=== PATIENT | female | born 1965 | race African-American/Black ===

== ENCOUNTER 2024-01-15 10:11 | Outpatient (CLI) | payer MEDICAID, SELFPAY ==
--- OUTSIDE RECORDS SUMMARY | 2024-01-15 10:19 | XMS_ITS | Clinical Summary ---
Author Organization [employer] [facility] Address [place], [place] [address] Care Team Providers Care Technical Information Specialist Name Role Phone Allan, Alicia Qi Primary Care Provider [phone] Allergies No known active allergies Medications Medication Sig Dispensed Refills Start Date End Date Status diclofenac topical (VOLTAREN) 1 % gelIndications:Suzy vipul osteoarthritis of right knee Apply 4 g topically to affected area(s) four times daily. 350 g 2 02/05/20 23 Active famotidine (PEPCID) 20 mg tabletIndications: Gas pain Take 1 Tablet (20 mg) by mouth two times daily. 180 Tablet 2 03/17/19 24 Active hydrocortisone (HYTONE) 2.5 % ointmentIndication s:Contact dermatitis, unspecified contact dermatitis type, unspecified trigger Apply topically to affected area(s) two times daily. 20 g 03/17/19 24 Active [id number] acid 29 mg iron- 1 mg chewIndications:Ba riatric surgery status Chew 1 Tablet by mouth once daily. 90 Tablet 3 05/06/19 24 Active cholecalciferol (VITAMIN D3) 5,000 unit capsuleIndications :Vitamin D deficiency Take 1 Capsule (5,000 units) by mouth once daily. 90 Capsule 2 05/06/19 24 Active gabapentin (NEURONTIN) 100 mg capsuleIndications :Fibromyalgia Take 1 Capsule (100 mg) by mouth every morning. 90 Capsule 2 05/18/19 24 Active ibuprofen (ADVIL; MOTRIN) 600 mg tabletIndications: Fibromyalgia TAKE ONE TABLET BY MOUTH THREE TIMES A DAY NEEDED FOR PAIN MAXIMUM OF 3200 MG IN 24 HOURS 270 Tablet 2 07/24/19 24 Active blood-glucose meterIndications:D iabetes mellitus due to underlying condition, controlled, without complication, without long-term current use of insulin (HC) As directed. Dispense meter covered by pts insurance. 1 Each 09/24/19 24 Active metFORMIN (GLUCOPHAGE XR) 500 mg Extended-Release tabletIndications: Class 3 severe obesity in adult, unspecified BMI, unspecified obesity type, unspecified whether serious comorbidity present (HC),Diabetes mellitus due to underlying condition, controlled, without complication, without long-term current use of insulin (HC) Take 2 Tablets (1,000 mg) by mouth once daily with a meal. 180 Tablet 10/27/19 24 Active meloxicam (MOBIC) 7.5 mg tabletIndications: Mid back pain Take 1 Tablet (7.5 mg) by mouth once daily. 14 Tablet 10/26/19 24 Active lidocaine 5 % topical patchIndications:M id back pain Apply to intact skin to cover most painful area for max 12hr per 24hr period. 15 Patch 10/26/19 24 Active HYDROcodone-acetam inophen (5-325 mg/tablet)Indicati ons:Mid back pain Take 1 Tablet by mouth 4 times daily if needed for Pain. Max acetaminophen dose: 4000 mg in 24 hrs. 5 Tablet 10/26/19 24 Active acetaminophen (TYLENOL EXTRA STRGTH) 500 mg tabletIndications: Thoracolumbar back pain,Facet arthritis of lumbar region Take 1 Tablet (500 mg) by mouth every 6 hours. Max acetaminophen dose: 4000mg in 24 hrs. 100 Tablet 3 10/28/19 24 Active albuterol HFA (PRO-AIR; VENTOLIN; PROVENTIL) 90 mcg/actuation inhalerIndications :Cough, unspecified type INHALE ONE TO TWO PUFFS BY MOUTH EVERY 4 HOURS NEEDED FOR SHORTNESS OF BREATH OR WHEEZING 18 g 11/09/19 24 Active blood sugar diagnostic (Blood Glucose Test) stripIndications:D iabetes mellitus due to underlying condition, controlled, without complication, without long-term current use of insulin (HC) Test 1-2 times per day, if needed 100 Each 12 11/11/19 24 Active lancetsIndications :Diabetes mellitus due to underlying condition, controlled, without complication, without long-term current use of insulin (HC) As directed. Test 1-2 times per day, if needed 100 Each 12 11/11/19 24 Active buPROPion (WELLBUTRIN XL) 150 mg Extended-Release tabletIndications: Depression with anxiety Take 1 Tablet (150 mg) by mouth once daily in the morning. 30 Tablet 1 12/17/19 Active oxyCODONE (ROXICODONE) 5 mg immediate release tabletIndications: Lumbar radiculopathy Take 1 Tablet (5 mg) by mouth 3 times daily if needed for Pain. for pain 36 Tablet 12/28/19 Active amitriptyline (ELAVIL) 25 mg tablet Take 2 Tablets by mouth at bedtime. 024 Discontinued(*P atient states no longer taking) oxyCODONE (ROXICODONE) 5 mg immediate release tabletIndications: Lumbar radiculopathy Take 1 Tablet (5 mg) by mouth 3 times daily if needed for Pain. 12 Tablet 12/14/19 24 024 Discontinued oxyCODONE (ROXICODONE) 5 mg immediate release tabletIndications: Lumbar radiculopathy Take 1 Tablet (5 mg) by mouth 3 times daily if needed for Pain. for pain 12 Tablet 12/22/19 24 024 Discontinued(Re order (E-cancel not sent)) Active Problems Problem Noted Date Diagnosed Date Primary osteoarthritis of left knee 07/01/2022 Heart murmur 01/03/2022 Overview (01/15/2022): Echo 12/2021 with Mild mitral regurgitation, tri-leaflet aortic valve. Laurel Alvarez MD .................... 01/15/2022 10:12 AM Tricompartment osteoarthritis of right knee 12/24 Primary osteoarthritis of right knee 01/02/2021 Bariatric surgery status 08/22/2020 Mammogram declined 02/28/2018 Diabetes mellitus due to und erlying condition, controlled, without complication, without long-term current use of insulin 12/09/2016 Pain medication agreement 11/23/2014 Overview (12/02/2023): Controlled substsance agreement completed 11/03/[address] Lemus. MANAGED CARE COORDINATOR checked 12/02/23 Vitamin D deficiency 06/19/2014 ELIANA (obstructive sleep apnea) 03/25/2013 Overview (03/25/2013): Sleep study with Dr. Bryant 02/2013. Laurel Alvarez MD .................... 03/25/2013 10:39 AM Hyperlipidemia LDL goal < 100 09/17/2012 Language barrier, cultural differences 3 Overview (08/20/2012): Does not need an parts interpreter; is comfortable in [place] Fibromyalgia 05/26/2012 Depressive disorder 04/09/2010 Overview (06/08/2017): Overview: Depression* Resolved Problems Problem Noted Date Diagnosed Date Resolved Date Morbid obesity with BMI of 40.0-44.9, adult 01/09/2021 07/05/2021 Type 2 diabetes mellitus wit h hyperglycemia, without long-term current use of insulin 10/10/2020 01/09/2021 BMI 50.0-59.9, adult 03/10/2018 021 Insomnia 08/19/2012 07/05/2021 Diabetes mellitus type II 06/25/2012 Overview (05/10/2013): a system change updated this record. This will not affect patient care or billing. This comment can be deleted. Cardiomegaly 05/27/2012 01/09/2021 Overview (05/27/2012): mild need follow up consider EKG and echo Degenerative joint disease of knee 05/26/2012 01/09/2021 Encounters Date Type Department Care Team Description 12/28/2023 2:00 PM CREDIT REPRESENTATIVE Office Visit [facility] [address] [place] [address] Arsen Keith MD Musculoskeletal Problem (Follow up low back pain, discuss MRI and ZACK) 12/28/2023 Travel 12/21/2023 Refill [facility] [address] [place] [address] [address] Arsen Keith MD Refill Request (Oxycodone) 12/17/2023 3:15 PM CDT Office Visit [facility] [address] [place] [address] Alicia eLmus, Depression (would like to start medication); Back Pain (Has appointment scheduled with sports med on 12/27) 12/17/2023 Travel 12/14/2023 Refill [facility] [address] [place] [address] Arsen Keith MD Refill Request (oxyCODONE (ROXICODONE) 5 mg) 12/12/2023 Refill [facility] [address] [place] [address] Arsen Keith MD Refill Request (Oxycodone) 12/01/2023 Refill [facility] [address] [place] [address] Arsen Keith MD Refill Request 11/23/2023 Refill [facility] [address] [place] [address] Arsen Keith MD Refill Request (Oxycodone) 11/20/2023 Telephone [facility] [address] [place] [address] Arsen Keith MD Results (MRI) 11/17/2023 3:56 PM CDT - 11/17/2023 11:59 PM CDT Hospital Encounter [facility] [address] [place] [address] Arsen Keith MD Lumbar radiculopathy; Spondylolisthesis of lumbar region; Lumbar facet arthropathy 11/17/2023 Travel 11/10/2023 3:30 PM CDT Procedure Only [facility] [place] [address] [facility] [address] [place] [id number] Zane Walden MD Follow Up (bilateral knees) 11/10/2023 3:25 PM CDT Ancillary Procedure [facility] [place] [address] [facility] [address] [place] [address] 11/10/2023 Travel 11/10/2023 Telephone [facility] [address] Alicia Lemus, Refill Request (Accu-Chek Guide test strips, lancets) 11/09/[address] [address] Almita Wray MD Refill Request (Albuterol Hfa) 11/06/2023 10:40 AM CDT Office Visit [facility] [address] Arsen Keith MD Musculoskeletal Problem (Consult back pain per Dr. Lemus) 11/06/2023 Travel 10/30/[address] [address] Almita rWay MD Refill Request (Ventolin Hfa) 10/30/[address] [address] Alicia Lemus, Form 10/29/[address] [address] Alicia Lemus, DO Results 10/28/2023 4:30 PM CDT Ancillary Procedure [address] [address] 10/28/2023 4:05 PM CDT Office Visit [address] [address] Alicia Lemus, Back Pain (Ongoing back pain moves all over the place has not participated in physical therapy. ) 10/28/2023 Travel 10/27/[address] [address] Arsen Keith MD Appointment Request 10/26/2023 7:59 AM CDT - 10/26/2023 11:04 AM CDT Emergency [facility] [address] [place] [address] Rosalie Crane MD Mid back pain (Primary Dx) Discharge Disposition: Home Self Care 10/26/2023 Travel 10/23/2023 Refill [facility] [address] [facility] [place] [address] Alicia Lemus, DO Refill Request (Metformin) 10/22/2023 Nurse Triage [facility] [address] [facility] [place] [address] Alicia Lemus, DO Back Pain from Last 3 Months Immunizations Name Administration Dates Next Due COVID-19 vaccine ([employer] 30mcg/0.3mL) 12YO+ STEVEN-SUCROSE PF, MDV 06/07/2021 COVID-19 vaccine ([employer] 30mcg/0.3mL) PF, MDV 06/28/2020 Hepatitis B (Adult) 12/11/2022,08/01/2022,2020 Influenza, IIV3 (Age >=3 years) 12/01/2012,12/09 Influenza, IIV4 12/17/2020,,01/27/2019,2016,01/24/2016,11/23/2014 MMR 01/26/2001,08/01/1997 Pneumococcal Conj 20-valent (Prevnar 20) 08/01/2022 Pneumococcal Poly,23-Valent (Pneumovax) 12/17/2020 TD, UNSPECIFIED 08/23/2001,01/26/2001,08/01/1997 Td (Age >=7 Years) 08/23/2001,01/26/2001, 998 Tdap 04/30/2015 Typhoid (injectable) 09/09/2016 Family History Medical History Relation Name Comments Diabetes type II Father Asthma Mother Relation Name Status Comments Father Mother Alive Social History Tobacco Use Types Packs/Day Years Used Date Smoking Tobacco: Never Smokeless Tobacco: Never Tobacco Cessation:Counseling Given: Yes Alcohol Use Standard Drinks/Week Comments Never 0 (1 standard drink = 0.6 oz pur e alcohol) PHQ-2 Answer Date Recorded PHQ-2 TOTAL SCORE 2 12/17/2023 Social Connections Answer Date Recorded Do you often feel lonely or isolated from those around you? 0 10/28/2023 Financial Resource Strain Answer Date R ecorded Difficulty of Paying Living Expenses 3 10/28/2023 Difficulty of Paying Living Expenses Not on file 10/28/2023 Food Insecurity Answer Date Recorded Do you worry your food will run out before you are able to buy more? 1 10/28/2023 Transportation Needs Answer Date Record ed Does lack of transportation keep you from medica l appointments? 1 10/28/2023 Does lack of transportation keep you from work, meetings or getting things that you need? 1 10/28/2023 Housing Stability Answer Date Recorded What is your housing situation today? 1 10/28/2023 Sex and Gender Information Value Date Recorded Sex Assigned at Not on file Gender Identity Not on file Sexual Orientation Not on file Obstetrics History Para Term AB IAB SAB Ectopic Multiple Livin g Live Births 8 7 7 0 1 0 1 0 0 6 7 Date Outcome GA Total Labor Labor/2nd/3rd Weight Sex Type Anes PTL Peri A1 A5 Name Clin Term Demise SAB Demise Term Living Term Y Living Term Y Living Term Living Term Living Term Living Last Filed Vital Signs Vital Sign Reading Time Taken Comments Blood Pressure 138/62 12/28/2023 2:12 PM CREDIT REPRESENTATIVE Pulse 76 12/28/2023 2:12 PM CREDIT REPRESENTATIVE Temperature 36.7 C (98 F) 12/28/2023 2:12 PM CREDIT REPRESENTATIVE Respiratory Rate 18 10/26/2023 8:04 AM CDT Oxygen Saturation 97% 12/28/2023 2:1 2 PM CREDIT REPRESENTATIVE Inhaled Oxygen Concentration - - Weight 110.2 kg (243 lb) 12/28/2023 2:1 2 PM CREDIT REPRESENTATIVE shoes and coat on Height 160 cm (5' 3) 10/26/2023 8:04 AM CDT Body Mass Index 43.05 10/26/2023 8:04 AM CDT Plan of Treatment Upcoming Encounters Date Type Department Care Team (Late st Contact Info) Description 01/15/2024 11:00 AM CREDIT REPRESENTATIVE Office Visit [facility] at [address] [address] Arsen Keith MD [address] [facility] [place] [address] Arrived 01/22/2024 3:15 PM CREDIT REPRESENTATIVE Office Visit [facility] [address] [place] [address] Alicia Lemus DO [address] [place] [address] 04/06/2024 2:20 PM CREDIT REPRESENTATIVE Office Visit [facility] [address] [place] [address] Arsen Keith MD [address] [place] [address] Health Maintenance Due Date Last Done Comments Colonoscopy through age 75 2009 Mammogram for age 45-75 2009 Zoster (shingles) series for age 50+ (1 of 2) 2014 Pap test for age 21-65 11/06/2020 8 (Completed outside of [facility]), 03/10/2013 BMI (ht and wt on same day) for age 18+ 09/05/2023 09/04/2022, 08/01/2022, 07/03/2022, Additional history exists COVID-19 vaccine series ( season) 2023 06/07/2021, 07/19/2020, 06/28/2020 Influenza for age 50-64 10/25/2023 12/18/19 21, 12/21/2019, 01/27/2019, Additional history exists Depression screening for age 12+ 12/16/2024 12/17/2023, 01/15/2022, 09/26/2020, Additional history exists Tetanus booster 04/29/2025 04/30/2015, 07/0 02/2001, 08/23/2001, Additional history exists Lipids for age 45-75 04/01/2028 04/01/2023, 12/17/2020, 04/18/2020, Additional history exists Tdap Completed 04/30/2015 Hepatitis C screening for ag e 18-79 Completed 08/26/2019 HIV for age 15-65 Completed 04/04/2022 Pneumococcal series for age 6-64 Completed 08/02/19 23, 12/17/2020 Hepatitis B series for Diabetes Completed 12/11/2022, 08/01/2022, 12/17/2020 Procedures Procedure Name Priority Date/Time Associated Diagnosis Comments AMB EPIDURAL STEROID INJECTION Routine 01/15/2024 8:03 AM CREDIT REPRESENTATIVE Lumbar radiculopathy Spondylolisthesis of lumbar region Lumbar facet arthropathy MR SPINE LUMBAR WO Routine 11/17/2023 4: 32 PM CDT Lumbar radiculopathy Spondylolisthesis of lumbar region Lumbar facet arthropathy XR KNEE WB 1 VIEW AP BILATERAL AND 3 VIEWS BILATERAL Routine 11/10/2023 3:35 PM CDT Primary osteoarthritis of right knee Primary osteoarthritis of left knee XR SPINE THORACIC 3 VIEWS Routine 10/28/2023 5:24 PM CDT Thoracolumbar back pain CT ABDOMEN PELVIS STONE PROTOCOL WO STAT 10/26/2023 9:25 AM CDT CBC WITH AUTO DIFFERENTIAL STAT 10/26/2023 8:43 AM CDT LIPASE STAT 10/26/2023 8:43 AM CDT HEPATIC FUNCTION PANEL STAT 10/26/2023 8:43 AM CDT BASIC METABOLIC PANEL STAT 10/26/2023 8:43 AM CDT CBC WITH AUTO DIFFERENTIAL STAT 10/26/2023 8:43 AM CDT URINALYSIS MICROSCOPIC STAT 10/26/2023 8:29 AM CDT UA W/ SEDIMENT EXAM REFLEXED PER CRITERIA STAT 10/26/2023 8:29 AM CDT LIPID PANEL W REFLEX MEASURED LDL Routine 04/01/2023 4:54 PM CREDIT REPRESENTATIVE Class 3 severe obesity in adult, unspecified BMI, unspecified obesity type, unspecified whether serious comorbidity present (HC) Diabetes mellitus due to underlying condition, controlled, without complication, without long-term current use of insulin (HC) RAPID HIV SCREEN Routine 04/04/2022 11:1 7 AM CREDIT REPRESENTATIVE Screening for HIV (human immunodeficiency virus) HCV RNA QUANT Routine 08/26/2019 10:02 AM CDT Encounter for hepatitis C screening test for low risk patient FRUIT AND VEGETABLE PARER THIN PREP PAP SCREEN IMAGED Routine 03/10/2013 2:30 PM CREDIT REPRESENTATIVE Well woman exam from Last 3 Months or Most Recently Relevant to Health Maintenance Results * MR SPINE LUMBAR WO (11/17/2023 4:32 PM CDT) Anatomical Region Laterality Modality Spine, LUMBAR SPINE Magnetic Res onance 11/18/2023 11:2 1 AM CDT Impressions 11/18/2023 11:21 AM CDT 1. Grade 1 anterolisthesis of L4 on L5. Otherwise, normal alignment. No fractures 2. Lumbar spondylosis. 3. At L4-5, disc degeneration and posterior disc bulge. Mild narrowing of the spinal canal. 4. No spinal canal or neural foraminal narrowing at the remaining levels Dictated by Fidel Beebe MD @ 11/18/2023 11:21:32 AM (Electronically Signed) Narrative 11/18/2023 11:21 AM CDT For Patients: As a result of the Cures Act, medical imaging exams and procedure reports are released immediately into your electronic medical record. You may view this report before your referring provider. If you have questions, please contact your health care provider. INDICATION: Radiculopathy. COMPARISON: 11/03/2022. Technique Sagittal T1, T2, and STIR sequences. Axial T1 and T2 weighted sequences. FINDINGS: Grade 1 anterolisthesis of L4 on L5 measures approximately 5 millimeters. Otherwise, normal alignment. No fractures. No vertebral body loss of height. No ligamentous injury. No suspicious osseous lesions. Vertebral body hemangioma L2. Normal conus terminates at L1-2. T12-L1 L1-2 L2-3: No spinal canal or neural foraminal narrowing. L3-4: Mild disc degeneration and posterior disc bulge. No narrowing of spinal canal. No neural foraminal narrowing. L4-5: Grade 1 anterolisthesis. Disc degeneration and posterior disc bulge. Mild narrowing of spinal canal. No neural foraminal narrowing. Mild facet arthropathy. L5-S1: No narrowing of spinal canal. No impingement of the traversing S1 nerve roots. No neural foraminal narrowing. Mild facet arthropathy. Normal visualized SI joints. Procedure Note Fidel Beebe MD, PhD - 11/18/2023 For Patients: As a result of the Cures Act, medical imagingexams and procedure reports are released immediately into your electronicmedical record. You may view this report before your referring provider.If you have questions, please contact your health care provider. INDICATION: Radiculopathy. COMPARISON: 11/03/2022. Technique Sagittal T1, T2, and STIR sequences. Axial T1 and T2 weightedsequences. FINDINGS: Grade 1 anterolisthesis of L4 on L5 measures approximately 5 millimeters.Otherwise, normal alignment. No fractures. No vertebral body loss ofheight. No ligamentous injury. No suspicious osseous lesions. Vertebralbody hemangioma L2. Normal conus terminates at L1-2. T12-L1 L1-2 L2-3: No spinal canal or neural foraminal narrowing. L3-4: Mild disc degeneration and posterior disc bulge. No narrowing ofspinal canal. No neural foraminal narrowing. L4-5: Grade 1 anterolisthesis. Disc degeneration and posterior disc bulge.Mild narrowing of spinal canal. No neural foraminal narrowing. Mild facetarthropathy. L5-S1: No narrowing of spinal canal. No impingement of the traversing [id number] roots. No neural foraminal narrowing. Mild facet arthropathy. Normal visualized SI joints. IMPRESSION: 1. Grade 1 anterolisthesis of L4 on L5. Otherwise, normal alignment. Nofractures 2. Lumbar spondylosis. 3. At L4-5, disc degeneration and posterior disc bulge. Mild narrowing ofthe spinal canal. 4. No spinal canal or neural foraminal narrowing at the remaining levels Dictated by Fidel Beebe MD @ 11/18/2023 11:21:32 AM (Electronically Signed) Arsen Keith MD MR * XR KNEE WB 1 VIEW AP BILATERAL AND 3 VIEWS BILATERAL (11/10/2023 3:35 PM CDT) Anatomical Region Laterality Modality KNEES Computed Radiogr aphy 11/11/2023 7:02 AM CDT Impressions 11/11/2023 7:02 AM CDT Severe bilateral osteoarthritis, worse on the right. No significant change from the study of 07/01/2022. Dictated by Cullen Lopez MD @ 11/11/2023 7:02:54 AM (Electronically Signed) Narrative 11/11/2023 7:02 AM CDT For Patients: As a result of the Cures Act, medical imaging exams and procedure reports are released immediately into your electronic medical record. You may view this report before your referring provider. If you have questions, please contact your health care provider. INDICATION: Primary osteoarthritis of the right left knee. TECHNIQUE: Four views each the right left knee. COMPARISON: 10/20/2022. FINDINGS: Medial compartment narrowing in both knees more significant on the right is relatively similar to the prior study. Tricompartment osteoarthritis spurring. No fracture or dislocation. No lytic bone destruction. Benign cortical defect distal right femoral shaft similar to the prior. No apparent joint effusions. Procedure Note Kamron Lopez MD - 11/11/2023 For Patients: As a result of the Cures Act, medical imagingexams and procedure reports are released immediately into your electronicmedical record. You may view this report before your referring provider.If you have questions, please contact your health care provider. INDICATION: Primary osteoarthritis of the right left knee. TECHNIQUE: Four views each the right left knee. COMPARISON: 10/20/2022. FINDINGS: Medial compartment narrowing in both knees more significant on the rightis relatively similar to the prior study. Tricompartment osteoarthritisspurring. No fracture or dislocation. No lytic bone destruction. Benigncortical defect distal right femoral shaft similar to the prior. Noapparent joint effusions. IMPRESSION: Severe bilateral osteoarthritis, worse on the right. No significant changefrom the study of 07/01/2022. Dictated by Cullen Lopez MD @ 11/11/2023 7:02:54 AM (Electronically Signed) Zane Walden MD GENERAL IMAGING * XR SPINE THORACIC 3 VIEWS (10/28/2023 5:24 PM CDT) Anatomical Region Laterality Modality Spine, THORACIC SPINE Computed R adiography 10/29/2023 12:2 7 PM CDT Impressions 10/29/2023 12:27 PM CDT 1. No acute osseous injuries or abnormalities are noted. Dictated by Aakash Hameed MD @ 10/29/2023 12:27:55 PM Dictated by: Aakash Hameed MD @ 10/29/2023 12:27:58 (Electronically Signed) Narrative 10/29/2023 12:27 PM CDT For Patients: As a result of the Cures Act, medical imaging exams and procedure reports are released immediately into your electronic medical record. You may view this report before your referring provider. If you have questions, please contact your health care provider. INDICATION: Thoracolumbar back pain TECHNIQUE: Thoracic spine radiograph 3 views COMPARISON: None FINDINGS: Bone: No acute fractures or aggressive bone lesions are identified. Alignment is normal. Disc: Moderate degenerative disc disease is seen in the mid and inferior thoracic spine. The facet joints are unremarkable. Soft tissue: Unremarkable. The visualized hemithorax is unremarkable in appearance. No radiopaque foreign bodies are seen. Procedure Note Aakash Hameed MD - 10/29/2023 For Patients: As a result of the Cures Act, medical imagingexams and procedure reports are released immediately into your electronicmedical record. You may view this report before your referring provider.If you have questions, please contact your health care provider. INDICATION: Thoracolumbar back pain TECHNIQUE: Thoracic spine radiograph 3 views COMPARISON: None FINDINGS: Bone: No acute fractures or aggressive bone lesions are identified.Alignment is normal. Disc: Moderate degenerative disc disease is seen in the mid and inferiorthoracic spine. The facet joints are unremarkable. Soft tissue: Unremarkable. The visualized hemithorax is unremarkable inappearance. No radiopaque foreign bodies are seen. IMPRESSION: 1. No acute osseous injuries or abnormalities are noted. Dictated by Aakash Hameed MD @ 10/29/2023 12:27:55 PM Dictated by: Aakash Hameed MD @ 10/29/2023 12:27:58 (Electronically Signed) Alicia Lemus DO GENERAL IMAGING * CT ABD/PELVIS STONE PROTOCOL WO CONT (10/26/2023 9:25 AM CDT) Anatomical Region Laterality Modality Abdomen, Pelvis, AORTA, LIVER, SPLEEN Computed Tomography 10/26/2023 9:41 AM CDT Narrative 10/26/2023 9:41 AM CDT For Patients: As a result of the Cures Act, medical imaging exams and procedure reports are released immediately into your electronic medical record. You may view this report before your referring provider. If you have questions, please contact your health care provider. Indication: Flank pain, kidney stone suspected Technique: Noncontrast CT abdomen and pelvis Please note that all CT scans at this facility use dose modulation, iterative reconstruction, and/or weight-based dosing when appropriate to reduce radiation dose to as low as reasonably achievable. Comparison: None Findings: Patchy areas of small airway trapping within the lung bases. No pleural effusion. The liver measures 19.8 cm. Spleen is nonenlarged. Postop changes to the stomach including gastric jejunostomy. Gallbladder distended. No calcified gallstones or biliary obstruction. Pancreas is normal. Normal adrenal glands. Uterus is unremarkable. No adnexal lesion. No bladder stone. Normal appendix. No bowel obstruction. Postop changes to the anterior abdominal wall without hernia or fluid collection. Fecalization of several small bowel loops. No bowel obstruction. No free air, free fluid, abscess or adenopathy. No hydronephrosis or hydroureter. No ureteral stone. No perinephric or periureteral stranding. Grade 1 degenerative spondylolisthesis of L4 on L5. Facet degeneration L4-5 and L5-S1. No vertebral body compression fracture. Impression: No renal, ureteral or bladder stone. No hydronephrosis or hydroureter. No inflammatory changes. Hepatomegaly. Distended gallbladder without biliary obstruction or calcified stones. 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 No mechanical bowel obstruction. No enteritis or colitis. Normal appendix. Please note that all CT scans at this facility use dose modulation, iterative reconstruction, and/or weight-based dosing when appropriate to reduce radiation dose to as low as reasonably achievable. Dictated by Ashu Arceo MD @ 10/26/2023 9:41:31 AM (Electronically Signed) Procedure Note Ashu Arceo MD - 10/26/2023 For Patients: As a result of the Cures Act, medical imagingexams and procedure reports are released immediately into your electronicmedical record. You may view this report before your referring provider.If you have questions, please contact your health care provider. Indication: Flank pain, kidney stone suspected Technique: Noncontrast CT abdomen and pelvis Please note that all CT scans at this facility use dose modulation,iterative reconstruction, and/or weight-based dosing when appropriate toreduce radiation dose to as low as reasonably achievable. Comparison: None Findings: Patchy areas of small airway trapping within the lung bases. No pleuraleffusion. The liver measures 19.8 cm. Spleen is nonenlarged. Postopchanges to the stomach including gastric jejunostomy. Gallbladderdistended. No calcified gallstones or biliary obstruction. Pancreas isnormal. Normal adrenal glands. Uterus is unremarkable. No adnexal lesion.No bladder stone. Normal appendix. No bowel obstruction. Postop changes tothe anterior abdominal wall without hernia or fluid collection.Fecalization of several small bowel loops. No bowel obstruction. No freeair, free fluid, abscess or adenopathy. No hydronephrosis or hydroureter.No ureteral stone. No perinephric or periureteral stranding. Grade 1degenerative spondylolisthesis of L4 on L5. Facet degeneration L4-5 andL5-S1. No vertebral body compression fracture. Impression: No renal, ureteral or bladder stone. No hydronephrosis or hydroureter. Noinflammatory changes. Hepatomegaly. Distended gallbladder without biliary obstruction orcalcified stones. Fecalization of several small bowel loops suggesting small bowel motilitydisorder. No mechanical bowel obstruction. No enteritis or colitis. Normalappendix. Please note that all CT scans at this facility use dose modulation,iterative reconstruction, and/or weight-based dosing when appropriate toreduce radiation dose to as low as reasonably achievable. Dictated by Ashu Arceo MD @ 10/26/2023 9:41:31 AM (Electronically Signed) Rosalie Crane MD CT * (ABNORMAL) CBC WITH AUTO DIFFERENTIAL (10/26/2023 8:43 AM CDT) WHITE BLOOD COUNT 5.3 4.5 - 11.0 thou/cu mm 10/26/2023 8:50 AM [facility] RED BLOOD COUNT 4.16 4.00 - 5.20 mil/cu mm 10/26/2023 8:50 AM [facility] HEMOGLOBIN 11.2(L) 12.0 - 16.0 g/dL 10/26/2023 8:50 AM [facility] HEMATOCRIT 35.1 33.0 - 51.0 % 10/26/2023 8:50 AM [facility] MCV 84 80 - 100 fL 10/26/2023 8:50 AM [facility] MCH 26.9 26.0 - 34.0 pg 10/26/2023 8:50 AM [facility] MCHC 31.9(L) 32.0 - 36.0 g/dL 10/26/2023 8:50 AM [facility] RDW 14.9 11.5 - 15.5 % 10/26/2023 8:50 AM [facility] PLATELET COUNT 345 140 - 440 thou/cu mm 10/26/2023 8:50 AM [facility] MPV 9.4 6.5 - 11.0 fL 10/26/2023 8:50 AM [facility] % NEUT 69.2 % 10/26/2023 8:50 AM [facility] % LYMPH 18.9 % 10/26/2023 8:50 AM [facility] % MONO 8.7 % 10/26/2023 8:50 AM [facility] % EOS 2.6 % 10/26/2023 8:50 AM CDT [facility] % BASO 0.6 % 10/26/2023 8:50 AM T [facility] ABSOLUTE NEUTROPHILS 3.7 1.7 - 7.0 thou/cu mm 10/26/2023 8:50 AM T [facility] ABSOLUTE LYMPHOCYTES 1.0 0.9 - 2.9 thou/cu mm 10/26/2023 8:50 AM T [facility] ABSOLUTE MONOCYTES 0.5 <0.9 thou/cu mm 10/26/2023 8:50 AM T [facility] ABSOLUTE EOSINOPHILS 0.1 <0.5 thou/cu mm 10/26/2023 8:50 AM T [facility] ABSOLUTE BASOPHILS 0.0 <0.3 thou/cu mm 10/26/2023 8:50 AM T [facility] Blood BLOOD SPECIMEN / Unknown Butterfly / Unknown 10/26/2023 8:43 AM CDT 10/26/2023 8:46 AM CDT Rosalie Crane MD HEMATOLOGY Performing Organization Address City/[facility]/ZIP Co de Phone Number [facility] [address] [place] [address] * LIPASE (10/26/2023 8:43 AM CDT) LIPASE 26.6 13.0 - 60.0 IU/L 10/26/2023 9:06 AM CDT [facility] Blood BLOOD SPECIMEN / Unknown Butterfly / Unknown 10/26/2023 8:43 AM CDT 10/26/2023 8:46 AM CDT Rosalie Crane MD CHEMISTRY Performing Organization Address City/[facility]/ZIP Co de Phone Number [facility] [address] [place] [address] * HEPATIC FUNCTION PANEL (10/26/2023 8:43 AM CDT) ALBUMIN 4.0 4.0 - 4.9 g/dL 10/26/2023 9:06 AM [facility] PROTEIN,TOTAL 7.2 6.0 - 8.0 g/dL 10/26/2023 9:06 AM [facility] BILIRUBIN,TOTAL 0.3 0.0 - 1.2 mg/dL 10/26/2023 9:06 AM [facility] BILIRUBIN,DIRECT 0.1 0.0 - 0.2 mg/dL 10/26/2023 9:06 AM [facility] BILIRUBIN,INDIRE CT 10/26/2023 9:06 AM [facility] Comment:Unable to calculate, Direct Bili <0.2 ALK PHOSPHATASE 98 35 - 104 IU/L 10/26/2023 9:06 AM [facility] ALT (SGPT) 12 10 - 35 IU/L 10/26/2023 9:06 AM [facility] AST (SGOT) 21 10 - 35 IU/L 10/26/2023 9:06 AM [facility] Blood BLOOD SPECIMEN / Unknown Butterfly / Unknown 10/26/2023 8:43 AM CDT 10/26/2023 8:46 AM CDT Rosalie Crane MD CHEMISTRY Performing Organization Address [facility]/State/ZIP Co de Phone Number [facility] [address] [place] [address] * (ABNORMAL) BASIC METABOLIC PANEL (10/26/2023 8:43 AM CDT) SODIUM 140 136 - 145 mmol/L 10/26/2023 9:06 AM [facility] POTASSIUM 3.4(L) 3.5 - 5.1 mmol/L 10/26/2023 9:06 AM [facility] CHLORIDE 106 98 - 107 mmol/L 10/26/2023 9:06 AM [facility] CO2,TOTAL 23 22 - 29 mmol/L 10/26/2023 9:06 AM [facility] ANION GAP 11 5 - 18 10/26/2023 9:06 AM [facility] GLUCOSE 121(H) 70 - 99 mg/dL 10/26/2023 9:06 AM [facility] CALCIUM 9.0 8.6 - 10.0 mg/dL 10/26/2023 9:06 AM [facility] BUN 19 6 - 20 mg/dL 10/26/2023 9:06 AM [facility] CREATININE 0.55 0.50 - 0.90 mg/dL 10/26/2023 9:06 AM [facility] BUN/CREAT RATIO 35(H) 10 - 20 9:06 AM [facility] eGFR >90 >90 mL/min/1.7 3m2 10/26/2023 9:06 AM [facility] Comment:As of 2021, eG FR is calculated by the CKD-EPI creatinine equation without race adjustment. eGFR can be influenced by muscle mass, exercise, and diet. The reported eGFR is an estimation only and is only applicable if the renal function is stable. Blood BLOOD SPECIMEN / Unknown Butterfly / Unknown 10/26/2023 8:43 AM CDT 10/26/2023 8:46 AM CDT Rosalie Crane MD CHEMISTRY [facility] [address] [place] [id number] * (ABNORMAL) URINALYSIS MICROSCOPIC (10/26/2023 8:29 AM CDT) RBC 0-2 0-2, None Seen /HPF 10/26/2023 8:54 AM [facility] WBC 0-2 0-2, 3-5, None Seen /HPF 10/26/2023 8:54 AM [facility] BACTERIA Few None Seen, Rare, Few Bacteria/ HPF 10/26/2023 8:54 AM [facility] EPITHELIAL CELLS Moderate(A) None Seen, Few Epi/HPF 10/26/2023 8:54 AM [facility] Mucus Present 10/26/2023 8:54 AM [facility] Urine URINE SPECIMEN / Unknown Non-Blood / Unknown 10/26/2023 8:29 AM CDT 10/26/2023 8:46 AM CDT Rosalie Crane MD URINE [facility] [address] [place] [address] * (ABNORMAL) URINALYSIS W REFLEX MICROSCOPIC IF POSITIVE (10/26/2023 8:29 AM CDT) COLOR Yellow Yellow Color 10/26/2023 8:52 AM [facility] CLARITY Slightly Cloudy(A) Clear Clarity 10/26/2023 8:52 AM [facility] SPECIFIC GRAVITY,URINE >=1.030(A) 1.010, 1.015, 1.020, 1.025 10/26/2023 8:52 AM [facility] PH,URINE 6.0 6.0, 7.0, 8.0, 5.5, 6.5, 7.5, 8.5 10/26/2023 8:52 AM [facility] UROBILINOGEN, QUALITATIVE Normal Normal EU/dl 10/26/2023 8:52 AM [facility] PROTEIN, URINE 30(A) Negative mg/dL 10/26/2023 8:52 AM [facility] GLUCOSE, URINE Negative Negative mg/dL 10/26/2023 8:52 AM [facility] KETONES,URINE Negative Negative mg/dL 10/26/2023 8:52 AM [facility] BILIRUBIN,URI NE Negative Negative 10/26/2023 8:52 AM [facility] OCCULT BLOOD,URINE Negative Negative 10/26/2023 8:52 AM [facility] NITRITE Negative Negative 10/26/2023 8:52 AM [facility] LEUKOCYTE ESTERASE Trace(A) Negative 10/26/2023 8:52 AM CDT [facility] Urine URINE SPECIMEN / Unknown Non-Blood / Unknown 10/26/2023 8:29 AM CDT 10/26/2023 8:46 AM CDT Rosalie Crane MD URINE [facility] [address] [place] [address] * LIPID PANEL W REFLEX MEASURED LDL (04/01/2023 4:54 PM CREDIT REPRESENTATIVE) CHOLESTEROL,TOTAL 192 100 - 199 mg/dL 04/02/2023 3:59 PM CREDIT REPRESENTATIVE [facility] Comment: Cholesterol, Total Reference Ranges Desirable <200 mg/dL Borderline 200-239 mg/dL High >=240 mg/dL TRIGLYCERIDES 93 <150 mg/dL 04/02/2023 3:59 PM CREDIT REPRESENTATIVE [facility] HDL CHOLESTEROL 54 >40 mg/dL 3:59 PM CREDIT REPRESENTATIVE [facility] NON-HDL CHOLESTEROL 138 <145 mg/dl 04/02/2023 3:59 PM CREDIT REPRESENTATIVE [facility] CHOL/HDL RATIO 3.56 <4.50 04/02/2023 3:59 PM CREDIT REPRESENTATIVE [facility] LDL CHOLESTEROL 119 <=130 mg/dL 04/02/2023 3:59 PM CREDIT REPRESENTATIVE [facility] VLDL CHOLESTEROL 19 <=30 mg/dL 04/02/2023 3:59 PM CREDIT REPRESENTATIVE [facility] PROVIDER ORDERED STATUS RANDOM 04/02/2023 3:59 PM CREDIT REPRESENTATIVE [facility] Blood BLOOD SPECIMEN / Unknown Butterfly / Unknown 04/01/2023 4:54 PM CREDIT REPRESENTATIVE 04/01/2023 4:57 PM CREDIT REPRESENTATIVE Alicia Lemus DO CHEMISTRY [facility] [address] * RAPID HIV SCREEN (04/04/2022 11:17 AM CREDIT REPRESENTATIVE) RAPID HIV SCREEN Non-React isidro Non-Reactiv e, Invalid 04/04/2022 11:56 AM CREDIT REPRESENTATIVE [facility] Comment:A NONREACTIVE test r esult means that HIV-1 or HIV-2 antibodies and HIV-1 p24 antigen were not detected in the specimen. Blood BLOOD SPECIMEN / Unknown Butterfly / Unknown 04/04/2022 11:17 AM CREDIT REPRESENTATIVE 04/04/2022 11:19 AM CREDIT REPRESENTATIVE Laurel Alvarez MD CHEMISTRY [facility] [address] [place] [address] * HCV RNA QUANT (08/26/2019 10:02 AM CDT) Pathologist [facility] HCV RNA RT-PCR HCV RNA not detected HCV RNA not detected IU/mL 08/29/2019 1:44 PM CDT [facility] Blood BLOOD SPECIMEN / Unknown Venipuncture / Unknown 08/26/2019 10:02 AM CDT 08/26/2019 10:04 AM CDT Narrative [facility] - 08/29/2019 1:44 PM CDT Method: Jaskaran HCV Test Laurel Alvarez MD SEND OUTS [facility] [address] * FRUIT AND VEGETABLE PARER THIN PREP PAP SCREEN IMAGED (03/10/2013 2:30 PM CREDIT REPRESENTATIVE) Pathologist [facility] CYTOLOGY CYTOPATHOLOGY REPORT [facility] [place] Status: Final Status [id number] CLINICAL INFORMATION Last Date of LMP :unk Last Pap Date :unk Last Pap Result :NIL ABN [place]/Bx Past 5 YRS :None Hormone Usage :BCP/OCP/Patch/Rin g Menstrual Status :Regular Periods [place]/Bx done today :No Additional Information :None given HPV Request :HPV if ASCUS SPECIMEN SOURCE :Cervical/vaginal ThinPrep Vial, screening SPECIMEN ADEQUACY :Satisfactory for evaluation Endocervical component present. INTERPRETATION/RES ULT Negative for intraepithelial lesion or malignancy (NIL) Cytology 1st Screener :alejandro Signed by :alejandro This specimen was screened by the FDA approved ThinPrep Imaging System and manually reviewed. NOTE: The Pap test is a screening technique, not a diagnostic procedure. It is used primarily to screen for squamous cancers and precursor lesions. Published studies have shown that it is subject to both false negative and false positive results. The pap test should not be used as the sole means to diagnose or exclude pre-malignant and malignant lesions. COLLECTED:03/10/13 ACCESSIONED: 03/11/13 SIGNED: 03/19/13 [facility] PAP [place] CODE NIL [facility] Tissue specimen (specimen) (Cervical/Vagina l) 03/10/2013 2:30 PM CREDIT REPRESENTATIVE 03/10/2013 2:29 PM CREDIT REPRESENTATIVE Laurel Alvarez MD PATHOLOGY/CYTOLOGY [facility] INTERNAL ZIP [address] [place], [place] [id number] from Last 3 Months or Most Recently Relevant to Health Maintenance Care Teams Technical Information Specialist Relationship Specialty Start Date End Date Alicia Lemus DO [address] [place] [address] PCP - General Family Practice 11/03/22
== END 2024-01-15 10:12 | disposition home or self-care (01) ==
PROVIDERS: Visit Provider Family Medicine
DX: M51.360 Other intervertebral disc degeneration, lumbar region with discogenic back pain only (principal)
CPT/HCPCS: 62323; J0702; Q9966

== ENCOUNTER 2024-11-15 10:35 | Outpatient (CLI) | payer MEDICAID, SELFPAY | END 2024-11-15 10:36 | disposition home or self-care (01) | PROVIDERS: Visit Provider Family Medicine | DX: M17.11 Unilateral primary osteoarthritis, right knee (principal); M25.561 Pain in right knee | CPT/HCPCS: 64454 ==